=== PATIENT | male | born 1995 | race Two or more races ===

== ENCOUNTER 2022-12-30 03:16 | Emergency (ER) | payer OTHER ==
[~2022-12-30] VITALS: Ht 162.6 cm; Wt 72.7 kg
[2022-12-30 03:19] VITALS: BP 124/72; PULSE 78; RESP 17; TEMP 98.7
[2022-12-30] MEDS ORDERED: POVIDONE-IODINE 10% 120 ML SOLUTION TP ONE (04:00)
[2022-12-30] MEDS ORDERED: SULFAMETHOX/TRIMETH DS 800-160 MG/TABLET PO ONE (04:00)
[2022-12-30] MEDS ORDERED: CEPHALEXIN MONOHYDRATE 500 MG CAPSULE PO ONE (04:00)
[2022-12-30] MEDS ORDERED: CEPH-558 PO (04:02)
[2022-12-30] MEDS ORDERED: SULF-261 PO (04:02)
== END 2022-12-30 04:39 | disposition home or self-care (01) ==
LOC: EMS 03:16
DX: S90.02XA Contusion of left ankle, initial encounter (principal); L03.031 Cellulitis of right toe; Y93.39 Activity, other involving climbing, rappelling and jumping off; Y93.89 Activity, other specified; Y92.89 Other specified places as the place of occurrence of the external cause; Y99.8 Other external cause status
CPT/HCPCS: 99284; 73610-TC; Z7502; Z7610